=== PATIENT | male | born 1940 | race Caucasian/White ===

== ENCOUNTER → 2017-09-23 | Outpatient (CLI) | payer OTHER ==
[~2017-09-23] MED LIST: ADVAIR DISKUS 21 DSK INH; AUGMENTIN 875 M1 TAB PO; CLARITIN10 MG PO; CORDROL20 MG PO; GLIPIZIDE10 MG PO; GLIPIZIDE5 MG PO; JANUVIA25 MG PO; KEFLEX500 MG PO; LASIX20 MG; LASIX20 MG PO; LISINOPRIL5 MG; LOVASTATIN20 MG PO; LOVASTATIN40 MG; MEDROL DOSEPAK4 MG PO; METFORMIN1000 MG; PERCOCET 325 MG1 TA2 PO; PREDNISONE20 MG PO; PROVENTIL0.09 MG/AC IH; SPIRIVA -- 3018 MCG PO; VICODIN 5/500 505 M1 PO; VITAMIN D1000 IU PO; VITAMIN D2000 IU PO; WARFARIN4 MG; XARE15TA PO
[2017-09-23 11:41] LABS: BASO % 0.4 % (0.0-1.0); EOS # 0.1 10*3/uL (0.0-0.4); EOS % 2.2 % (1.0-4.0); HEMATOCRIT 37.1 % (42.0-52.0); HEMOGLOBIN 11.7 g/dl (14.0-18.0); LYMPH # 1.5 10*3/uL (1.3-4.4); LYMPH % 26.2 % (27.0-41.0); MEAN CELL VOLUME 95.9 fl (80.0-94.0); MEAN CORPUSCULAR HGB 30.2 pg (27.0-31.0); MEAN CORPUSCULAR HGB CONC 31.5 g/dl (33.0-37.0); MEAN PLATELET VOLUME 11.9 fl (9.6-12.3); MONO # 0.5 10*3/uL (0.1-1.0); MONO % 8.4 % (3.0-9.0); NEUT # 3.4 10*3/uL (2.3-7.9); NEUT % 61.5 % (47.0-73.0); PLATELET COUNT AUTOMATED 91 10*3/uL (130-400); RED BLOOD COUNT 3.87 10*6/uL (4.50-5.90); WHITE BLOOD COUNT 5.6 10*3/uL (4.8-10.8)
[2017-09-23 11:48] LABS: BILIRUBIN NEGATIVE (NEGATIVE); BLOOD NEGATIVE (NEGATIVE); CLARITY CLEAR (CLEAR); COLOR YELLOW (YELLOW); GLUCOSE NEGATIVE (NEGATIVE); KETONE NEGATIVE (NEGATIVE); LEUKO ESTERASE NEGATIVE (NEGATIVE); NITRITE NEGATIVE (NEGATIVE); PH 5.5 (5.0-9.0); UROBILINOGEN 0.2 E.U./dl (0.2-1.0)
[2017-09-23 12:11] LABS: ALBUMIN 3.7 gm/dl (3.1-4.5); CREATININE 2.2 mg/dL (0.70-1.30); PHOSPHOROUS 3.7 mg/dL (2.5-4.9)
[2017-09-23 12:52] LABS: MUCOUS 1+; WBC 0-2 wbc/hpf (0-5)
[2017-09-23 13:45] LABS: FERRITIN 87.9 ng/mL (22.0-322.0); PTH INTACT 44.2 pg/mL (14.0-72.0); VITAMIN D, 25-HYDROXY 22.3 ng/mL (30-100)
== END | disposition home or self-care (01) ==
LOC: LAB 11:18
PROVIDERS: Internal Medicine Nephrology
DX: N18.3 Chronic kidney disease, stage 3 (moderate) (principal); N25.81 Secondary hyperparathyroidism of renal origin; D64.9 Anemia, unspecified; E64.9 Sequelae of unspecified nutritional deficiency

== ENCOUNTER 2017-10-28 17:40 | Inpatient (IN) | payer OTHER ==
[~2017-10-28] VITALS: Ht 182.8 cm; Wt 86.6 kg
--- NOTE | ~2017-10-28 | PR ---
[place], [place] PROGRESS NOTE NAME: HARSH JOHNS SR UNIT #: [id number] ROOM: 401 DOCTOR: OMAR ROBLES DO BIRTHDATE: [birth year] DOS: 11/06/2017 ATTENDING PHYSICIAN: Dr. Lofton. SUBJECTIVE: The patient was seen and examined this morning. The patient continues to improve, notes that his respiratory symptoms are all getting better. The patient continues to deny any chest pain. His shortness of breath and coughing have improved. The patient agrees to be assessed for home oxygen and patient felt like he was ready to go home and continue his treatment as outpatient. OBJECTIVE: VITAL SIGNS: Temperature 97.8, pulse 83, respirations 18, blood pressure 134/56, pulse ox 98% on room air. HEENT: Eyes are clear. No injection. No drainage. Nares are patent. Mucous membranes are moist. CARDIOVASCULAR: Regular rate and rhythm. No murmurs, gallops or rubs. LUNGS: No wheezing or crackles were appreciated; however, diminished breath sounds were heard throughout. ABDOMEN: Soft and nontender. Bowel sounds were present. EXTREMITIES: No cyanosis, clubbing, erythema or edema. LABORATORY DATA: Sodium 141, potassium 4, chloride 104, carbon dioxide 28, creatinine 1.4, glucose is 236. Bronch cultures show light yeast. Blood cultures continue to remains negative. Sputum cultures show normal marshall. IMPRESSION: 1. Bilateral pneumonia. 2. Chronic obstructive pulmonary disease with acute exacerbation. 3. Acute hypoxic respiratory failure. 4. Hypercapnia. PLAN OF TREATMENT: The patient at this time was assessed for home O2. The patient was able to walk without hypoxia. The patient does not qualify for home oxygen. The patient is cleared for discharge from a respiratory standpoint, recommend steroids and antibiotics as directed by the primary team and follow up with Dr. Lofton as outpatient in 1-2 weeks. OMAR ROBLES DO [place], [place] PROGRESS NOTE NAME: HARSH JOHNS SR UNIT #: [id number] ROOM: 401 DOCTOR: OMAR ROBLES DO BIRTHDATE: [birth year] JH LOFTON MD CM:PNCARMINE [id number] OMAR ROBLES DO 11/06/17 1508 interface
--- NOTE | ~2017-10-28 | PR ---
[place], [place] PROGRESS NOTE NAME: HARSH JOHNS SR UNIT #: [id number] [place]OM: [facility] [place] [facility] DOCTOR: SHANNAN MEDELLIN,JANUARY BIRTHDATE: [birth year] DOS: 11/03/2017 SUBJECTIVE: The patient is being followed for post-viral pneumonia. He was positive for RSV. He was diagnosed with pneumonia. He is going to be bronch tomorrow. He is currently on Levaquin. His MRSA screen was negative. Sputum culture only grew oral marshall. Blood cultures were negative. He is alert and oriented, feeling better, states his breathing is much better. Little cough with a little yellow white sputum. No nausea, vomiting or diarrhea. No pain, no fevers or shaking chills. Further review of systems is unremarkable other than he does have lower extremity edema. LABORATORY DATA: Show WBC is 10.4, platelets 78. BUN 27, creatinine 1.34. LFTs within normal limits. ProBNP 3971. CURRENT MEDICATIONS: Include Robitussin, Zocor, Solu-Medrol, Lovenox, Levaquin, vitamin D, Protonix, DuoNebs, insulin, Mucinex, Restoril, Zofran, milk of mag, [place]. PHYSICAL EXAMINATION: VITAL SIGNS: Show temperature 97.4, pulse 67, respirations 18, BP 137/54. GENERAL: A 77-year-old male in no acute distress. HEAD, EYES, EARS, NOSE AND THROAT: Normocephalic, no thrush. LUNGS: Diminished bilaterally with rhonchi. Respirations even and unlabored. HEART: Regular rhythm. No murmur appreciated. ABDOMEN: Soft, nondistended, nontender. EXTREMITIES: +2 to 3 edema bilateral lower extremities, left greater than right. SKIN: Warm, dry, free of rashes. ASSESSMENT: Post-viral pneumonia as well as some degree of volume overload. PLAN: Continue the Levaquin. Follow up on the bronchoscopy in the morning. Case discussed with Dr. Rustam Salgado. JANUARY VIGNESH CAMPBELL [place], [place] PROGRESS NOTE NAME: HARSH JOHNS SR UNIT #: [id number] ROOM: 401 DOCTOR: SHANNAN MEDELLIN,JANUARY BIRTHDATE: [birth year] RUSTAM SALGADO MD CM:PNTRANS [phone] SHANNAN MEDELLIN 11/03/17 175 interface
--- NOTE | ~2017-10-28 | PR ---
[place], [place] PROGRESS NOTE NAME: HARSH JOHNS SR [facility] #: [id number] UNIT #: [id number] ROOM: 401 DOCTOR: RUSS CLARK MDJH BIRTHDATE: [birth year] DOS: 11/01/2017 SUBJECTIVE: The patient seen and examined. He has been noted with slow improvement in the respiratory symptoms, still noted with coughing that has occurred at night with the use of the BiPAP. Shortness of breath and wheezing have been resolving. There were no symptoms of chest pain or any abdominal pain. OBJECTIVE: VITAL SIGNS: Recorded and showed temperature noted as normal, respiratory rate 20, heart rate 71, and blood pressure 150/65. This morning, pulse oxygen saturation on 3 liters nasal cannula, 93%-96% saturation recorded. HEENT: No acute change. NECK: Supple. CARDIOVASCULAR: S1, S2 audible. LUNGS: Noted with scattered crackles in the lungs bilaterally. ABDOMEN: Soft, nontender. EXTREMITIES: Without any acute edema. SKIN: No visible lesions or rashes. MUSCULOSKELETAL: No deformities. CENTRAL NERVOUS SYSTEM: Cranial nerves 2-12 intact. LABORATORY DATA: The patient's CBC today, WBC count normal, hemoglobin 11.5, hematocrit 35.5, and platelet count 92,000. CMP this morning, BUN 36, creatinine 1.73, glucose 316, and chloride 108. Yesterday, BUN noted at 40 and creatinine 1.71. Chest x-ray, 2-views, which was done for this patient was personally reviewed, shows evidence of bilateral pulmonary infiltration noted with worsening as compared to the previous chest x-ray. RSVB virus was noted as well. IMPRESSION: 1. The patient who has been noted with persistent acute kidney injury with persistent acute respiratory failure, partial improvement, the chest x-ray noted quite worse and isolative respiratory syncytial B virus as well from the respiratory secretions. 2. The patient with acute exacerbation of chronic obstructive pulmonary disease as well. 3. Past history of pulmonary embolism. 4. Stable mild thrombocytopenia as well. PLAN OF MANAGEMENT: Zosyn will be discontinued. The patient will be started on IV doxycycline and continued. Levaquin added to antibiotics. Monitor respiratory status closely. Discontinue BiPAP because of severe cough symptoms ____ started. Consider doing bronchoscopy on Saturday, reassessment of current pulmonary infiltration. The patient was receiving vancomycin that had been discontinued yesterday. ____ vancomycin could be started if the respiratory symptoms further deteriorate. Supportive care, plan of management and care. [place], [place] PROGRESS NOTE NAME: HARSH JOHNS SR UNIT #: [id number] ROOM: [facility] DOCTOR: JH STOUT MD BIRTHDATE: [birth year] JH SOLANO MD CM:PNTRANS [phone] JH CLARK MD 11/01/171751 interface
--- NOTE | ~2017-10-28 | EKG ---
[place], [place] ELECTROCARDIOGRAM REPORT NAME: HARSH JOHNS SR UNIT #: [id number] ROOM: 401 DOCTOR: RUSS CLARK MD,JH BIRTHDATE: [birth year] DOS: 10/28/2017 TIME: 5:45 p.m. Sinus tachycardia noted. Heart rate 121 beats per minute. EKG for this patient was noted with possible consideration of right ventricular hypertrophy. JH SOLANO MD CM:EKGRPT:ELECTROCARDIOGRAM REPORT 1825 1917 JH CLARK MD
--- NOTE | ~2017-10-28 | CON ---
[place], [place] REPORT OF CONSULTATION NAME: HARSH JOHNS SR UNIT #: [id number] ROOM: 401 DOCTOR: DAMIAN ALMANZA,RUSTAM Gutierrez BIRTHDATE: [birth year] DOS: 11/02/2017 ADDENDUM After reviewing the chart, labs and radiographs, I agree with the above plans as described. We will follow the patient up clinically and adjust accordingly. Thank you for allowing me to see the patient. RUSTAM SALGADO MD CM:CONSTR:REPORT OF CONSULTATION 0742 11/04/17 1422 interface
--- NOTE | ~2017-10-28 | PR ---
[place], [place] PROGRESS NOTE NAME: HARSH JOHNS SR [facility] #: [id number] UNIT #: [id number] ROOM: 405 DOCTOR: RUSS CLARK MD,JH BIRTHDATE: [birth year] DOS: 10/31/2017 PULMONARY PROGRESS NOTE SUBJECTIVE: The patient has been showing continued gradual reduction and improvement of his respiratory symptoms with reduction of cough, wheezing and shortness of breath. Denies symptoms of chest pain or any acute hemoptysis. The patient has not been noted any symptoms of fever or chills. He has been using the BiPAP at times. OBJECTIVE: VITAL SIGNS: For the patient which were recorded. The patient showed the temperature noted as normal, respiratory rate of 20-24, heart rate of 90-75, blood pressure 136/78-142/58. Pulse oxygen saturation 3 liters nasal cannula 95% saturation recorded. HEENT: Showed no acute change. NECK: Supple. CARDIOVASCULAR: S1, S2 is audible. LUNGS: The patient was noted with moderate decreased breath sounds with expiratory wheezing without any crackles. ABDOMEN: Soft, nontender. EXTREMITIES: Shows no edema, clubbing, cyanosis, or other. Visible skin, no lesions or rashes. MUSCULOSKELETAL: No deformities. SKIN: No abnormal lesions or rashes. CENTRAL NERVOUS SYSTEM: Cranial nerves 2-12 intact. LABORATORY DATA: Culture of the sputum. The patient for the first of this month was noted as normal marshall. CBC: Normal WBC count, hemoglobin 11.2, hematocrit 34.9, platelet count 91,000. The BMP of patient, BUN 40, creatinine 1.71, glucose 330. Blood culture, no bacterial growth was noted from 10/28/2017. IMPRESSION: 1. The patient was being currently noted with severe acute hypoxic respiratory failure with hypercapnia with acute bilateral pneumonia for Gram stain rather culture. Culture of the sputum noted as normal marshall. 2. Worsening with acute kidney function, most likely secondary to intravascular volume depletion for this patient as well. 3. Hyperglycemia related to the use of the corticosteroids as well. PLAN OF TREATMENT: Obtain a chest x-ray in the morning. The patient to reassess the progression of the pneumonia. Discontinue vancomycin based on culture results. Continuation of the Lovenox. The patient adjusted to the abnormal kidney functions as well as the antibiotic. The patient has Levaquin, the primary antibiotic. Decrease the Solu-Medrol to 40 mg b.i.d. as well as reduction in the wheezing was noted. Start the patient intravenous fluids half normal saline 80 mL an hour for the next 48 hours with close monitor labs to be continued for thrombocytopenia, BUN and creatinine and others. Continue use of BiPAP as tolerated. Supportive care, plan of management therapy and care. [place], [place] PROGRESS NOTE NAME: HARSH JOHNS SR UNIT #: [id number] ROOM: 405 DOCTOR: JH STOUT MD BIRTHDATE: [birth year] JH SOLANO MD CM:BRITTANI [phone] JH CLARK MD 10/31/17 1825 interface
--- NOTE | ~2017-10-28 | PR ---
[place], [place] PROGRESS NOTE NAME: HARSH JOHNS SR [facility] #: [id number] UNIT #: [id number] ROOM: 401 DOCTOR: RUSS CLARK MDJH BIRTHDATE: [birth year] DOS: 11/04/2017 SUBJECTIVE: He has been noted comfortable at this time without any acute distress. The patient has not been noted with any symptoms of chest pain. Currently, n.p.o. past midnight for bronchoscopy. The Lovenox has been noted on hold in the last 24 hours. The patient denies any symptoms of chest pain. The cough remains nonproductive, unchanged. Denies symptoms of dizziness or headache. Denies sore throat or hoarseness. Denies symptoms of gastroesophageal reflux, nausea, or vomiting. Denies dysuria or hematuria. Denies any musculoskeletal pain. Generalized weakness was reported. Remaining systems were reviewed and they were noted normal. OBJECTIVE: VITAL SIGNS: Normal temperature, respiratory rate 18-21, heart rate 92, blood pressure 141/50. The pulse oxygen saturation on 2 L nasal cannula 94% saturation recorded. HEENT: Head was atraumatic. Eyes nonicterus. NECK: Supple. CARDIOVASCULAR: S1, S2 audible. LUNGS: The patient was noted without any wheezing or crackles at the present time. ABDOMEN: Noted soft, nontender. Bowel sounds present. EXTREMITIES: Noted without edema. VISIBLE SKIN: No rashes, lesions, or bruising. MUSCULOSKELETAL: No deformities. GENITOURINARY: Intact. LABORATORY DATA: The CMP this morning - glucose 283, BUN 32, creatinine 1.39. Remaining electrolytes were normal. CBC this morning - WBC count were normal, hemoglobin 12.7, hematocrit 38.6, platelet count of 81,000. The chest x-ray that was done for this patient yesterday was reviewed, showed improvement in the infiltration. IMPRESSION: 1. The patient has persistent cough with bilateral pulmonary infiltration. Currently treated for the acute pneumonia. 2. Anticoagulation, which has been known chronic. The patient with history of hypercoagulability and massive pulmonary embolism. 3. History of colon cancer, previously as well. 4. Severe acute hypercapnic and hypoxic respiratory failure as well. 5. Thrombocytopenia, which has been noted variably decreased. PLAN OF MANAGEMENT: Proceed with bronchoscopy as planned for this patient this morning. Further modification of treatment to be done based on progression of the illness. The acute kidney injury continued to resolve progressively. Titrate oxygen supplementation to maintain a saturation of 92% or greater. Continue the current nutrition support for the patient as well. The Solu-Medrol dose was noted 40 mg b.i.d. Changes will be made if necessary after bronchoscopy. [place], [place] PROGRESS NOTE NAME: NAT BOWERSHARSH Raffi UNIT #: [id number] ROOM: [facility] DOCTOR: JH STOUT MD BIRTHDATE: [birth year] JH SOLANO MD CM:PNTRANS [phone] JH CLARK MD 11/04/174 interface
--- NOTE | ~2017-10-28 | PR ---
[place], [place] PROGRESS NOTE NAME: HARSH JOHNS SR [facility] #: [id number] UNIT #: [id number] ROOM: 405 DOCTOR: RUSS CLARK MD,JH BIRTHDATE: [birth year] DOS: 10/30/2017 SUBJECTIVE: He has been noted with reduction in symptoms of respiratory distress and coughing and wheezing in the last 24 hours. The patient has been ordered the BiPAP with adjusted setting after obtaining arterial blood gases. He remains in Intensive Care Unit. Denies symptoms of acute chest pain. The patient has been noted generally weak and fatigued ____ decreased. There were no symptoms of fever or chills. PHYSICAL EXAMINATION: VITAL SIGNS: Show normal temperature, respirations 16, heart rate of 85, blood pressure 118/60. The pulse oxygen saturation for the patient on 30% with BiPAP is 96% on 3 liters nasal cannula, 99% saturation. HEENT: Examination shows head was atraumatic. Eyes nonicterus. NECK: Supple. CARDIOVASCULAR: S1, S2 audible. LUNGS: The patient was noted with moderate decreased breath sounds with expiratory wheezing, decreased from previous examination. There were no crackles heard. ABDOMEN: Soft, nontender. Bowel sounds present. EXTREMITIES: Without any edema. LABORATORY DATA: The patient's CBC today, platelet count noted 91,000, hemoglobin 10.6, hematocrit 33.6, platelet count was normal. Influenza A and B, nasal washing antigen for the patient that were ordered yesterday were noted as negative. Respiratory viral panel is pending. Arterial blood gas related that was done yesterday, pH of 7.38, pCO2 of 30.3, pO2 of 69.8. CMP this morning, BUN 44, creatinine 1.63, glucose 336. Chloride 110 and magnesium is normal. The culture of the sputum for this patient from the 10/28/2017 was noted with normal marshall preliminary. Final culture results remains pending. IMPRESSION: 1. The patient who has been currently noted with acute severe hypoxic respiratory failure with multilobar pneumonia for this patient. 2. Acute exacerbation of chronic obstructive pulmonary disease. 3. Hyperglycemia secondary to use of the corticosteroids as well. Blood glucose noted at the bedside more than 400 previously, currently noted as more than 300. 4. Severe debility remains persistent. 5. Thrombocytopenia as well. 6. Past history of ____ 7. Acute kidney injury, which was resolving. PLAN OF MANAGEMENT: Reduce the Solu-Medrol dose to 40 mg q.8h. Discontinue the Lovenox 30 mg subcu daily on the therapeutic dose and start adjusted with the kidney functions. Other supportive therapy, plan of management and care. Supportive care, other plan of management to be continued for the patient as well. Adjust the antibiotics based on culture results and improvement in the respiratory symptoms. [place], [place] PROGRESS NOTE NAME: HARSH JOHNS SR UNIT #: [id number] ROOM: 405 DOCTOR: JH STOUT MD BIRTHDATE: [birth year] JH SOLANO MD CM:PNTRANS [phone] JH CLARK MD 10/30/171945 interface
--- NOTE | ~2017-10-28 | PR ---
[place], [place] PROGRESS NOTE NAME: HARSH JOHNS SR UNIT #: [id number] ROOM: 401 DOCTOR: JH STOUT MD BIRTHDATE: [birth year] DOS: 11/05/2017 SUBJECTIVE: The patient has been noted comfortable at this time. Bronchoscopy done yesterday for the patient successfully, which has resulted in reduction of symptoms of coughing and shortness of breath. Denies symptoms of chest pain. The patient has been assessed for home oxygen and noted with hypoxia the patient will be requiring oxygen supplementation as a portable oxygen at home. The patient has not been noted with any ongoing acute new respiratory complaints at the present time. OBJECTIVE: VITAL SIGNS: For the patient which were recorded, the patient showed the temperature noted normal, respiratory rate 18, heart rate 70, and blood pressure 136/59. Pulse oxygen saturation of the patient on 2 liters is 97% saturation. HEENT: Examination shows no acute change. NECK: Supple. CARDIOVASCULAR: S1, S2 audible. LUNGS: Examination of the lung, the patient was noted without any wheezing or crackles at the present time. Breaths are noted mildly decreased bilaterally. ABDOMEN: Soft, nontender. Bowel sounds present. EXTREMITIES: Without any acute edema. LABORATORY DATA: Culture of the sputum ____ bronchial washing noted, normal marshall. The Gram stain shows few epithelial cells, moderate white blood cells, and a few gram-positive cocci in pairs and clusters. IMPRESSION: The patient with acute bilateral pneumonia superimposed area of atelectasis with acute hypoxic respiratory failure, hypercapnia, and exacerbation of chronic obstructive pulmonary disease all gradually resolving with significant further improvement noted after therapeutic bronchoscopy. PLAN OF TREATMENT: Await until tomorrow for the patient for the final culture results because of excessive pneumonia. Continue bronchodilators and oxygen supplementation. The corticosteroid will remain at the same dose. Other supportive therapy and plan of management for the patient to be done based on progression of the illness. Repeat another chest x-ray in the morning for reassessment of the current pulmonary infiltration. [place], [place] PROGRESS NOTE NAME: HARSH JOHNS SR UNIT #: [id number] ROOM: 401 DOCTOR: JH STOUT MD BIRTHDATE: [birth year] JH SOLANO MD CM:PNTRANS [phone] JH CLARK MD 11/05/17 2257 interface
--- NOTE | ~2017-10-28 | PR ---
[place], [place] PROGRESS NOTE NAME: HARSH JOHNS SR UNIT #: [id number] ROOM: 401 DOCTOR: JH STOUT MD BIRTHDATE: [birth year] DOS: 11/03/2017 SUBJECTIVE: She has been noted comfortable time sitting in a chair. Cough has been noted intermittently without any sputum expectoration. Shortness of breath has been noted with gradual reduction. There were no symptoms of chest pain or hemoptysis. The patient denies any symptoms of edema or pain of the lower extremities. Denies any dizziness or headache. OBJECTIVE: VITAL SIGNS: Normal temperature, respiratory rate 18, heart rate 67, blood pressure 137/54-146/56. Pulse oxygen saturation on 3 liters cannula 93% to 96% saturation. HEENT: No acute change. NECK: Supple. CARDIOVASCULAR: S1, S2 is audible. LUNGS: The patient noted with crackles in the lung noted bilaterally with expiratory wheezing. ABDOMEN: Soft, nontender. EXTREMITIES: Without any edema. SKIN: No lesions or rashes. MUSCULOSKELETAL: No deformities. CENTRAL NERVOUS SYSTEM: Intact. LABORATORY DATA: CBC today was reviewed. WBC count normal, hemoglobin 11.8, hematocrit 36.7, platelet count 78,000. CMP: The patient this morning BUN 27, creatinine 1.34, glucose 198. Albumin of 2.8, total protein of 6.0. IMPRESSION: 1. The patient who had been currently treated with bilateral acute pneumonia for this patient responding to the treatment slowly with a nonproductive cough. 2. The patient with RSV infection also noted and acute bronchitis. 3. Acute exacerbation of chronic obstructive pulmonary disease. 4. Thrombocytopenia for this patient noted variable. 5. Steroid-induced hyperglycemia. 6. Resolving acute kidney injury progressively. PLAN OF MANAGEMENT: Continuation of the current plan of management at this time. Bronchoscopy planned to be done in the morning. Continue use of bronchodilators, oxygen supplementation, avoid the diuretic therapy. Supportive care, plan of management with the treatment plan of care. Usual treatment, other therapies. [place], [place] PROGRESS NOTE NAME: HARSH JOHNS SR UNIT #: [id number] ROOM: 401 DOCTOR: JH STOUT MD BIRTHDATE: [birth year] JH SOLANO MD CM:PNTRANS [phone] JH CLARK MD 11/04/17 0154 interface
--- NOTE | ~2017-10-28 | CON ---
[place], [place] REPORT OF CONSULTATION [id number] UN[facility] #: [id number] ROOM: 401 DOCTOR: SHANNAN MEDELLIN,JANUARY BIRTHDATE: [birth year] DOS: 11/02/2017 HISTORY OF PRESENT ILLNESS: The patient is a pleasant 77-year-old male who was admitted from home on October 28. He had been ill for a week or so with cough, shortness breath and congestion. He states he is feeling much better than he had. When he was admitted, he was on Levaquin and doxycycline. His respiratory viral panel has come back positive for RSV. He has been receiving antibiotics for community-acquired pneumonia. Chest x-ray demonstrated infiltrates on admission on October 28. Chest x-ray yesterday showed some bilateral worsening. He is going to be bronched by Dr. Lofton on Saturday. The doxycycline was added earlier today. It appears he did have a MRSA screen done, which was negative. His sputum culture only had oral marshall. The Gram stain had many wbc's and gram-positive cocci in pairs and chains. His influenza was negative. Urinary antigens were not done, wbc's are normal. He has been afebrile. He states sputum is white to pale yellow. Cough is improved and again he feels much better since admission. He has significant bilateral lower extremity edema. No nausea, vomiting or diarrhea. No rashes. Further review of systems is unremarkable. PAST MEDICAL HISTORY: Includes DVT, PE, acute renal failure, diabetes, hyperlipidemia, hypertension, COPD, GERD, chronic thrombocytopenia with questionable factor V Leiden. SOCIAL HISTORY: He is a reformed smoker. No alcohol or illicit drug use. FAMILY MEDICAL HISTORY: Both parents are of unknown causes. ALLERGIES: No known drug allergies. CURRENT MEDICATIONS: Include doxycycline, Robitussin, Zocor, Solu-Medrol, Lovenox, Levaquin, vitamin D, Protonix, DuoNeb, insulin, Mucinex, Restoril, Zofran, milk of magnesia, [place] and Tylenol. LABORATORY DATA: Cultures as reviewed above. Admitting blood cultures were negative. WBCs 9.3, platelets 98. BUN 30, creatinine 1.62. LFTs within normal limits. PHYSICAL EXAMINATION: VITAL SIGNS: Temperature 97.3, pulse 68, respirations 20 and BP 154/60. GENERAL: Alert and oriented, pleasant 77-year-old male in no acute distress. HEENT: Normocephalic. NECK: Supple. No thrush. LUNGS: Diminished bilaterally with few crackles. Respirations even and unlabored on O2 via nasal cannula. HEART: Regular rhythm. No murmur appreciated. ABDOMEN: Soft, nondistended and nontender. EXTREMITIES: Left lower extremity +3 edema. Right lower extremity +2 to 3 edema. SKIN: Warm, dry and free of rashes. [place], [place] REPORT OF CONSULTATION NAME: HARSH JOHNS SR UNIT #: [id number] ROOM: 401 DOCTOR: SHANNAN MEDELLIN,JANUARY BIRTHDATE: [birth year] ASSESSMENT: Respiratory syncytial virus respiratory infection with post-viral pneumonia. He is improving clinically. Despite the somewhat worsened chest x-ray yesterday given his peripheral edema, I have concern that this is more volume overload than pneumonia. At this point, I think it is safe to stop the doxycycline. Continue the Levaquin. He has been improving with it. His MRSA screen was negative. We will check a proBNP. Again, continue the Levaquin, stop the doxycycline. Followup on the bronch. REBA CAMPBELL CNP RUSTAM SALGADO MD CM:CONSTR:REPORT OF CONSULTATION 1634 11/02/17 2146 interface
--- NOTE | ~2017-10-28 | PR ---
[place], [place] PROGRESS NOTE NAME: HARSH JOHNS SR [facility] #: [id number] UNIT #: [id number] ROOM: 401 DOCTOR: RUSS CLARK MD,JH BIRTHDATE: [birth year] DOS: 11/06/2017 PULMONARY ADDENDUM NOTE SUBJECTIVE: The patient was independently seen and examined today with [id number] encounter and history was confirmed. The physical examination performed. The labs available reviewed with the patient personally as well. Assessment and discharge planning for the patient and now the recommendation personally made. Note done by the medical editor was approved. The patient has been noted comfortable without any symptoms of acute shortness of breath at this time, coughing, chest pain, sputum expectoration, and other problems. PHYSICAL EXAMINATION: VITAL SIGNS: For the patient was noted to be normal. The pulse oxygen saturation of the patient recorded as 98% on 2 liters nasal cannula. LUNGS: Noted clear of any wheezing or crackles. ABDOMEN: Soft, nontender. EXTREMITIES: Without any edema. LABORATORY DATA: BMP: BUN 36 and creatinine 1.42. The culture of the bronchial washing light growth of yeast. Chest x-ray, PA and lateral view done this morning was reviewed shows continued resolution of the acute infiltration of the lungs bilaterally with minimal infiltration noted at the present time in the right lower lobe. Left-sided pulmonary infiltration completely resolved. There were no pleural effusions. PLAN OF TREATMENT: The patient has been reassessed. The patient has oxygen supplementation, would not need any oxygen supplementation. The oxygen saturation maintained 92% or greater. He would be considered and recommended for home discharge for the patient without any oxygen. Use of tapering dose of prednisone. No further antibiotic use will be necessary. Outpatient followup is suggested in my office in the next 3-4 weeks. JH SOLANO MD CM:BRITTANI [id number] JH CLARK MD 11/06/17 2347 interface
--- NOTE | ~2017-10-28 | CON ---
[place], [place] REPORT OF CONSULTATION NAME: HARSH JOHNS SR [facility] #: [id number] UNIT #: [id number] ROOM: [facility] DOCTOR: JH STOUT MD BIRTHDATE: [birth year] DOS: 10/29/2017 REASON FOR CONSULTATION: The patient with exacerbation of chronic obstructive pulmonary disease. HISTORY OF PRESENT ILLNESS: A 77-year-old white male who has been known to me from the past. He has been noted with past history of massive pulmonary embolism. The patient with history of COPD, essential hypertension and others. The patient presented to the hospital, he has been reported getting sick for the past one week in 09/2017. The symptoms have been noted with gradual worsening. The patient stated he did not want to come to the hospital because of the holidays. He has been brought to the hospital, the patient's symptoms noted to progressively worsen. He had recently used Zithromax as well resulting in no improvement of respiratory symptom. He has been noted with severe excessive chest congestion, inability to expectorate any sputum with severe dyspnea noted at rest. He was also noted with symptoms of wheezing as well with the tightness in the chest. He has been brought to the hospital by the EMS. The patient was given albuterol nebulizer treatment. During transportation to the Emergency Room, the BiPAP was also used to manage the respiratory distress. The patient has been currently admitted to the Intensive Care Unit where he has been assessed. He was noted with audible coughing and wheezing and still appears to have symptoms of shortness of breath. He denies any symptoms of chest pain. Denies any hemoptysis. REVIEW OF SYSTEMS: CONSTITUTIONAL: Fatigue and tiredness noted without symptoms of fever or chills. EYES: Denies any burning, redness, or tenderness. EARS, NOSE, AND THROAT SYMPTOMS: Denies sore throat, hoarseness, otalgia, postnasal drainage or epistaxis. CARDIOVASCULAR: Denied anginal pain, edema or pain in lower extremities or pain upon walking. GASTROINTESTINAL: Denied dysphagia, nausea, vomiting, diarrhea, abdominal pain, hematemesis, melena, or abnormal weight loss. Denies symptoms of hematochezia. GENITOURINARY SYMPTOMS: Denies dysuria, suprapubic pain, or hematuria. MUSCULOSKELETAL: No acute joint pain, redness, or tenderness. CENTRAL NERVOUS SYSTEM: No dizziness, headache, diplopia, or syncopal episodes. Remaining systems were reviewed with the patient, they were noted all negative. PAST MEDICAL HISTORY: 1. The patient known with history of COPD. 2. Type 2 diabetes mellitus. 3. Hypercholesterolemia. 4. Essential hypertension. 5. Cancer of the colon in 2013, treated with partial colectomy, chemotherapy and radiation therapy. PAST SURGICAL HISTORY: 1. Appendectomy. [place], [place] REPORT OF CONSULTATION NAME: HARSH JOHNS SR UNIT #: [id number] ROOM: [facility] DOCTOR: RUSS CLARK MD,[facility] BIRTHDATE: [birth year] 2. Bilateral inguinal hernia repair. 3. Embolectomy in 2001. 4. Partial colectomy in October of 2014. 5. MediPort insertion for chemotherapy. SOCIAL HISTORY: The patient is , has 5 children. Denies history of alcohol use or illicit drug use. He has worked for 35 years in the [employer]. Smoking was noted from the age of [age] years old, 1.5 pack of cigarettes per day, discontinued in 2001. FAMILY HISTORY: Father at the age of 6464 years old from an accident. The mother at the age of 7272 years old from acute myocardial infarction. HOME MEDICATIONS: Used by the patient were noted as use of: 1. Advair 250/50 one inhalation b.i.d. 2. Vitamin D 1000 international units daily. 3. ____ subq daily. 4. Glipizide 10 mg daily. 5. Lisinopril 5 mg daily. 6. Benazepril 10 mg daily. 7. Lasix 20 mg p.o. daily. 8. ProAir HFA inhaler use. DRUG ALLERGY HISTORY: No known drug allergies. PHYSICAL EXAMINATION: GENERAL: A 77-year-old white male who has been currently noted to be awake and alert with mild tachypnea at rest upon assessment. He has been noted with audible cough and wheezing. Height of 5 feet 8 inches, weight of 202 pounds, BMI 30.7. VITAL SIGNS: The temperature noted 99.9 degrees Fahrenheit to normal temperature, respiratory rate 24-26 and noted 32 on admission, heart rate ranged between 126 sinus tachycardia to 92, blood pressure 98/51-115/56. Pulse oxygen saturation for the patient on the BiPAP was 94% saturation with 30% oxygen, setting of 12/6 and with the nasal cannula supplementation oxygen saturation noted 95%. HEENT: Examination shows head was atraumatic. Eyes nonicterus. NECK: Supple. CARDIOVASCULAR: S1, S2 audible. No added sounds. LUNGS: Decreased breath sounds in the lungs were noted diffusely with expiratory wheezing. Basilar crackles were present. ABDOMEN: Soft, flat, nontender, bowel sounds present. MUSCULOSKELETAL: No obvious deformities. LABORATORY DATA: The patient's CBC from 10/28/2017, WBC count 7.9, hemoglobin 11.8, hematocrit 37.1, and platelet count of 102,000. PT/INR were noted normal. PTT was normal. CMP on 10/28/2017, BUN 50, creatinine 2.09, glucose 122. Remaining CMP was normal. Troponin first set was normal; the second and third set yesterday and this morning all noted normal. CBC this morning: WBC count normal, hemoglobin 10.4, hematocrit 32.____. Calcium was noted uncorrected at [place], [place] REPORT OF CONSULTATION NAME: HARSH JOHNS SR UNIT #: [id number] ROOM: [facility] DOCTOR: JH STOUT MD BIRTHDATE: [birth year] 8.0. Albumin 3.0. The rest of the LFTs were normal. Chest x-ray of the patient that was done, 1 view, was personally reviewed from the PACS image, shows bilateral infiltration was noted in the lungs, in the right middle, right lower and the left lower lobe as well. IMPRESSION: 1. The patient who has been currently admitted to the hospital noted with severe acute hypoxic respiratory failure, bilateral patchy infiltration, viral etiology with superimposed bacterial infection to be considered. However, the viral pneumonia, still remains in consideration. 2. The patient was also noted with acute kidney injury, related to most likely intravascular volume contraction as well. 3. Past history of cancer of the colon. The patient treated in 2014 with surgery, chemotherapy and radiation therapy. 4. Past history of hypercoagulable status. The patient with massive pulmonary embolism was noted, anticoagulation with the use of Lovenox long-term after the malignancy was found. Previously, the patient had been treated with Coumadin. 5. Thrombocytopenia, which has been noted increased from admission, may be related to current acute infectious etiology. 6. Acute exacerbation of chronic obstructive pulmonary disease was also noted and appeared to be severe. PLAN OF TREATMENT: The patient has been started on triple antibiotic therapy because of current severe pneumonia that will be continued until the culture results will be known. He has been getting Solu-Medrol 60 mg q.8 hours. I will order the arterial blood gas of this patient and the patient will be started on the BiPAP afterwards. Collect the sputum for Gram stain and culture. Nasal washing. Additional treatment changes to be made for the patient based on the progression of the illness. Usual care, other supportive therapy, plan of management and care. Additional treatment will be made for this patient later on as well as necessary with progression of the illness. Supportive care. Continue the patient treatment in the Intensive Care Unit. Thank you for allowing me to participate in the care of this patient. JH SOLANO MD CM:CONSTR:REPORT OF CONSULTATION 1428 10/29/17 2212 interface
--- NOTE | ~2017-10-28 | PR ---
[place], [place] PROGRESS NOTE NAME: HARSH JOHNS SR [facility] #: [id number] UNIT #: [id number] ROOM: 401 DOCTOR: RUSS CLARK MD,HJ BIRTHDATE: [birth year] DOS: 11/02/2017 PULMONARY PROGRESS NOTE SUBJECTIVE: The patient was seen and examined on 11/02/2017. He has been noted somewhat comfortable this morning, his antibiotics were changed yesterday. The patient continued to receive the intravenous fluids until this morning as half normal saline. He denies symptoms of chest pain or any abdominal pain. The patient did took a shower yesterday. The telemetry of the patient was continued. Denies any symptoms of edema or pain of the lower extremities. Denies any hemoptysis, cough has been noted nonproductive. OBJECTIVE: VITAL SIGNS: Shows a normal temperature, respiratory rate of 20-18, heart rate 66, blood pressure of 160/66. Pulse oxygen saturation of the patient noted on 3 liters nasal cannula about 97% saturation. HEENT: Showed no acute change. NECK: Supple. CARDIOVASCULAR: S1, S2 is audible. LUNGS: Scattered crackles of the lungs with expiratory wheezing. There were no crackles. There was no rhonchi. ABDOMEN: Flat, soft, nontender. EXTREMITIES: Without any edema. Visible skin, no lesions or rashes. MUSCULOSKELETAL: No deformities. CENTRAL NERVOUS SYSTEM: Cranial nerves 2-12 remained intact. LABORATORY DATA: CMP of the patient that were done today shows glucose 213, BUN 30, creatinine 1.62. Albumin 2.9. Remaining LFTs normal. CBC: Normal WBC count at 9.3, platelet count still noted to 98%, but improved previously and decreased, but still noted less than normal. Hemoglobin of 11.5, hematocrit 36.8, 78% segmented neutrophils noted with ordered differentials. IMPRESSION: 1. Bilateral acute pneumonia. The patient has been noted worsened at this time, with the chest x-ray, we changed antibiotics done yesterday. 2. The patient with RSV infection as well. 3. Overall debility. 4. Acute Change. The patient was noted reduction and improvement in the creatinine in the last 24 hours. 5. Diabetes mellitus with hyperglycemia as well. 6. Acute hypoxic respiratory failure and acute chronic anticoagulation. 7. Pulmonary embolism, hypercoagulability. Currently treated with Lovenox. PLAN OF TREATMENT: No changes in the medical treatment at this time will be necessary. Continue current dose of steroids, antibiotic, which were changed to doxycycline was added with continuation of the Levaquin. Fiberoptic bronchoscopy plan to be done on Saturday morning for further assessment, current persistent abnormality of chest x-ray and current worsening. Risks and benefits of the procedure has been discussed with the patient. The patient was agreeable for the procedure. Additional treatment changes need to be made based on [place], [place] PROGRESS NOTE [id number] UN[facility] #: [id number] ROOM: [facility] DOCTOR: JH STOUT MD BIRTHDATE: [birth year] progression of the illness. JH SOLANO MD CM:PNTRANS [id number] JH CLARK MD 11/03/17 0418 interface
[2017-10-28 17:43] VITALS: BP 136/106
[2017-10-28 18:03] LABS: BASO % 0.1 % (0.0-1.0); EOS % 0.1 % (1.0-4.0); HEMATOCRIT 37.1 % (42.0-52.0); HEMOGLOBIN 11.8 g/dl (14.0-18.0); LYMPH # 0.7 10*3/uL (1.3-4.4); LYMPH % 8.9 % (27.0-41.0); MEAN CELL VOLUME 94.9 fl (80.0-94.0); MEAN CORPUSCULAR HGB 30.2 pg (27.0-31.0); MEAN CORPUSCULAR HGB CONC 31.8 g/dl (33.0-37.0); MEAN PLATELET VOLUME 11.4 fl (9.6-12.3); MONO # 0.5 10*3/uL (0.1-1.0); MONO % 6.8 % (3.0-9.0); NEUT # 6.6 10*3/uL (2.3-7.9); NEUT % 83.3 % (47.0-73.0); PLATELET COUNT AUTOMATED 102 10*3/uL (130-400); RED BLOOD COUNT 3.91 10*6/uL (4.50-5.90); RED CELL DISTRI WIDTH 15.1 % (0-14.5); WHITE BLOOD COUNT 7.9 10*3/uL (4.8-10.8)
[2017-10-28 18:12] LABS: ACT PARTIAL THROMBO TIME 26.3 SECONDS (20.8-31.5); INTERNATIONAL NORM RATIO 1.1 (2.0-3.5)
[2017-10-28 18:15] VITALS: BP 96/68
[2017-10-28 18:20] LABS: ALBUMIN 3.9 gm/dl (3.1-4.5); ALKALINE PHOSPHATASE 49 U/L (45-117); BUN 50 mg/dl (7-24); CHLORIDE 104 mmol/L (98-107); CREATININE 2.09 mg/dL (0.70-1.30); LIPASE 87 U/L (73-393); POTASSIUM 4.2 mmol/L (3.5-5.1); SGOT/AST 10 IU/L (3-35); SGPT/ALT 28 U/L (12-78); SODIUM 138 mmol/L (136-145); TOTAL PROTEIN 7.8 gm/dL (6.4-8.2)
[2017-10-28 18:22] LABS: TROPONIN I < 0.015 ng/ml (<0.045)
[2017-10-28 18:38] VITALS: BP 112/51
[2017-10-28 18:40] VITALS: BP 110/51
[2017-10-28 19:40] VITALS: BP 114/46
[2017-10-28 20:00] VITALS: BP 132/59
[2017-10-28] MEDS ORDERED: PROTONIX40 MG PO (20:46)
[2017-10-29] VITALS: BP 98/51
[2017-10-29 04:00] VITALS: BP 99/45
[2017-10-29 05:28] LABS: BASO % 0.1 % (0.0-1.0); HEMATOCRIT 32.7 % (42.0-52.0); HEMOGLOBIN 10.4 g/dl (14.0-18.0); LYMPH # 0.5 10*3/uL (1.3-4.4); LYMPH % 5.3 % (27.0-41.0); MEAN CELL VOLUME 95.3 fl (80.0-94.0); MEAN CORPUSCULAR HGB 30.3 pg (27.0-31.0); MEAN CORPUSCULAR HGB CONC 31.8 g/dl (33.0-37.0); MEAN PLATELET VOLUME 12.3 fl (9.6-12.3); MONO # 0.5 10*3/uL (0.1-1.0); MONO % 5.9 % (3.0-9.0); NEUT # 7.9 10*3/uL (2.3-7.9); NEUT % 87.9 % (47.0-73.0); RED BLOOD COUNT 3.43 10*6/uL (4.50-5.90); RED CELL DISTRI WIDTH 15.4 % (0-14.5)
[2017-10-29 05:34] LABS: ACT PARTIAL THROMBO TIME 24.4 SECONDS (20.8-31.5); INTERNATIONAL NORM RATIO 1.2 (2.0-3.5)
[2017-10-29 05:51] LABS: CREATININE 1.97 mg/dL (0.70-1.30); POTASSIUM 4.2 mmol/L (3.5-5.1)
[2017-10-29 05:53] LABS: PLATELET COUNT AUTOMATED 68 10*3/uL (130-400)
[2017-10-29 05:53] LABS: PHOSPHOROUS 4.5 mg/dL (2.5-4.9); TOTAL PROTEIN 6.5 gm/dL (6.4-8.2)
[2017-10-29 05:59] LABS: FREE T4 1.02 ng/dl (0.76-1.46); THYROID STIM HORMONE (HS) 0.323 uIU/ml (0.358-4.75)
[2017-10-29 07:17] LABS: VITAMIN D, 25-HYDROXY 18.6 ng/mL (30-100)
[2017-10-29 08:00] VITALS: BP 115/56
[2017-10-29 12:00] VITALS: BP 117/55
[2017-10-29 14:43] LABS: ABG HCO3 17.8 mmol/l (22-26); ABG O2 SATURATION 94.3 % (95-97); ARTERIAL BLOOD GAS PCO2 30.3 mmHg (35-45); ARTERIAL BLOOD GAS PH 7.383 (7.35-7.45); ARTERIAL BLOOD GAS PO2 69.8 mmHg (80-90)
[2017-10-29 16:00] VITALS: BP 107/41
[2017-10-29 20:00] VITALS: BP 110/44
[2017-10-30] VITALS: BP 113/57
[2017-10-30 04:00] VITALS: BP 103/67
[2017-10-30 05:19] LABS: HEMATOCRIT 33.6 % (42.0-52.0); HEMOGLOBIN 10.6 g/dl (14.0-18.0); LYMPH # 0.5 10*3/uL (1.3-4.4); LYMPH % 8.1 % (27.0-41.0); MEAN CELL VOLUME 94.4 fl (80.0-94.0); MEAN CORPUSCULAR HGB 29.8 pg (27.0-31.0); MEAN CORPUSCULAR HGB CONC 31.5 g/dl (33.0-37.0); MEAN PLATELET VOLUME 11.9 fl (9.6-12.3); MONO # 0.3 10*3/uL (0.1-1.0); MONO % 4.4 % (3.0-9.0); NEUT # 5.7 10*3/uL (2.3-7.9); NEUT % 85.8 % (47.0-73.0); RED BLOOD COUNT 3.56 10*6/uL (4.50-5.90); RED CELL DISTRI WIDTH 15.2 % (0-14.5); WHITE BLOOD COUNT 6.6 10*3/uL (4.8-10.8)
[2017-10-30 05:23] LABS: PLATELET COUNT AUTOMATED 91 10*3/uL (130-400)
[2017-10-30 05:39] LABS: ALBUMIN 2.9 gm/dl (3.1-4.5); CREATININE 1.63 mg/dL (0.70-1.30); POTASSIUM 4.4 mmol/L (3.5-5.1)
[2017-10-30 05:41] LABS: TOTAL PROTEIN 6.4 gm/dL (6.4-8.2)
[2017-10-30 08:00] VITALS: BP 118/60
[2017-10-30 12:00] VITALS: BP 109/61
[2017-10-30 16:00] VITALS: BP 128/47
[2017-10-30 20:00] VITALS: BP 127/55
[2017-10-31] VITALS: BP 138/65
[2017-10-31 07:40] LABS: HEMATOCRIT 34.9 % (42.0-52.0); HEMOGLOBIN 11.2 g/dl (14.0-18.0); MEAN CELL VOLUME 94.3 fl (80.0-94.0); MEAN CORPUSCULAR HGB 30.3 pg (27.0-31.0); MEAN CORPUSCULAR HGB CONC 32.1 g/dl (33.0-37.0); MEAN PLATELET VOLUME 11.9 fl (9.6-12.3); PLATELET COUNT AUTOMATED 91 10*3/uL (130-400); RED CELL DISTRI WIDTH 15.2 % (0-14.5); WHITE BLOOD COUNT 8.6 10*3/uL (4.8-10.8)
[2017-10-31 08:00] VITALS: BP 136/78
[2017-10-31 08:12] LABS: CREATININE 1.71 mg/dL (0.70-1.30); POTASSIUM 4.4 mmol/L (3.5-5.1)
[2017-10-31 08:15] LABS: PLATELET SUFFICIENCY LOW (NORMAL); TOTAL CELLS COUNTED 100 #CELLS
[2017-10-31 12:00] VITALS: BP 142/58
[2017-10-31 14:10] VITALS: BP 166/83
[2017-10-31 20:00] VITALS: BP 145/86
[2017-11-01] VITALS: BP 133/81
[2017-11-01 00:04] LABS: ADENOVIRUS Negative (Negative); INFLUENZA A Negative (Negative); INFLUENZA B Negative (Negative); METAPNEUMOVIRUS Negative (Negative); PARAINFLUENZA 1 Negative (Negative); PARAINFLUENZA 2 Negative (Negative); PARAINFLUENZA 3 Negative (Negative); RHINOVIRUS Negative (Negative); RSV A Negative (Negative); RSV B Positive (Negative)
[2017-11-01 07:16] LABS: HEMATOCRIT 35.5 % (42.0-52.0); HEMOGLOBIN 11.5 g/dl (14.0-18.0); MEAN CELL VOLUME 94.2 fl (80.0-94.0); MEAN CORPUSCULAR HGB 30.5 pg (27.0-31.0); MEAN CORPUSCULAR HGB CONC 32.4 g/dl (33.0-37.0); MEAN PLATELET VOLUME 11.7 fl (9.6-12.3); PLATELET COUNT AUTOMATED 92 10*3/uL (130-400); RED BLOOD COUNT 3.77 10*6/uL (4.50-5.90); RED CELL DISTRI WIDTH 15.3 % (0-14.5); WHITE BLOOD COUNT 7.8 10*3/uL (4.8-10.8)
[2017-11-01 07:28] LABS: CREATININE 1.73 mg/dL (0.70-1.30); POTASSIUM 4.4 mmol/L (3.5-5.1); TOTAL PROTEIN 6.6 gm/dL (6.4-8.2)
[2017-11-01 08:00] VITALS: BP 151/65
[2017-11-01 08:07] LABS: PLATELET SUFFICIENCY LOW (NORMAL); TOTAL CELLS COUNTED 100 #CELLS
[2017-11-01 12:00] VITALS: BP 144/65
[2017-11-01 16:00] VITALS: BP 127/68
[2017-11-01 20:00] VITALS: BP 147/63
[2017-11-02] VITALS: BP 141/59; BP 152/91
[2017-11-02 07:44] LABS: HEMATOCRIT 36.8 % (42.0-52.0); HEMOGLOBIN 11.5 g/dl (14.0-18.0); MEAN CELL VOLUME 94.1 fl (80.0-94.0); MEAN CORPUSCULAR HGB 29.4 pg (27.0-31.0); MEAN CORPUSCULAR HGB CONC 31.3 g/dl (33.0-37.0); MEAN PLATELET VOLUME 11.7 fl (9.6-12.3); NUCLEATED RED BLOOD CELL 0.2 % (0.0-0.0); PLATELET COUNT AUTOMATED 98 10*3/uL (130-400); RED BLOOD COUNT 3.91 10*6/uL (4.50-5.90); RED CELL DISTRI WIDTH 15.1 % (0-14.5); WHITE BLOOD COUNT 9.3 10*3/uL (4.8-10.8)
[2017-11-02 07:52] LABS: ALBUMIN 2.9 gm/dl (3.1-4.5); CREATININE 1.62 mg/dL (0.70-1.30); POTASSIUM 4.8 mmol/L (3.5-5.1); TOTAL PROTEIN 6.6 gm/dL (6.4-8.2)
[2017-11-02 08:00] VITALS: BP 159/62
[2017-11-02 08:15] LABS: PLATELET SUFFICIENCY LOW (NORMAL); TOTAL CELLS COUNTED 100 #CELLS
[2017-11-02 12:00] VITALS: BP 160/66
[2017-11-02 16:00] VITALS: BP 154/60
[2017-11-02 20:00] VITALS: BP 131/64
[2017-11-03] VITALS: BP 123/55
[2017-11-03 07:20] LABS: HEMATOCRIT 36.7 % (42.0-52.0); HEMOGLOBIN 11.8 g/dl (14.0-18.0); MEAN CELL VOLUME 93.4 fl (80.0-94.0); MEAN CORPUSCULAR HGB CONC 32.2 g/dl (33.0-37.0); MEAN PLATELET VOLUME 12.2 fl (9.6-12.3); NUCLEATED RED BLOOD CELL 0.3 % (0.0-0.0); PLATELET COUNT AUTOMATED 78 10*3/uL (130-400); RED BLOOD COUNT 3.93 10*6/uL (4.50-5.90); RED CELL DISTRI WIDTH 14.9 % (0-14.5); WHITE BLOOD COUNT 10.4 10*3/uL (4.8-10.8)
[2017-11-03 07:29] LABS: ALBUMIN 2.8 gm/dl (3.1-4.5); ALKALINE PHOSPHATASE 46 U/L (45-117); BUN 27 mg/dl (7-24); CHLORIDE 109 mmol/L (98-107); CREATININE 1.34 mg/dL (0.70-1.30); POTASSIUM 4.4 mmol/L (3.5-5.1); SGOT/AST 14 IU/L (3-35); SGPT/ALT 33 U/L (12-78); SODIUM 140 mmol/L (136-145)
[2017-11-03 08:00] VITALS: BP 158/73
[2017-11-03 08:46] LABS: TOTAL CELLS COUNTED 100 #CELLS
[2017-11-03 08:47] LABS: PLATELET SUFFICIENCY LOW (NORMAL)
[2017-11-03 12:00] VITALS: BP 146/56
[2017-11-03 16:00] VITALS: BP 137/54
[2017-11-03 20:00] VITALS: BP 145/56
[2017-11-04] VITALS (10 sets, daily range): BP systolic 114–175; BP diastolic 50–84
[2017-11-04 08:21] LABS: HEMATOCRIT 38.6 % (42.0-52.0); HEMOGLOBIN 12.7 g/dl (14.0-18.0); MEAN CORPUSCULAR HGB CONC 32.9 g/dl (33.0-37.0); MEAN PLATELET VOLUME 12.2 fl (9.6-12.3); PLATELET COUNT AUTOMATED 81 10*3/uL (130-400); RED BLOOD COUNT 4.24 10*6/uL (4.50-5.90); RED CELL DISTRI WIDTH 15.2 % (0-14.5); WHITE BLOOD COUNT 10.7 10*3/uL (4.8-10.8)
[2017-11-04 08:41] LABS: BURR CELLS FEW; PLATELET SUFFICIENCY LOW (NORMAL); TOTAL CELLS COUNTED 100 #CELLS
[2017-11-04 08:54] LABS: ALBUMIN 3.1 gm/dl (3.1-4.5); CREATININE 1.39 mg/dL (0.70-1.30); POTASSIUM 4.3 mmol/L (3.5-5.1); TOTAL PROTEIN 6.6 gm/dL (6.4-8.2)
[2017-11-05] VITALS (7 sets, daily range): BP systolic 117–136; BP diastolic 56–71
[2017-11-05] MEDS ORDERED: PREDNISONE10 MG PO (07:23)
[2017-11-05] MEDS ORDERED: DOXYCYCLINE100 M3 PO (07:23)
[2017-11-05] MEDS ORDERED: LOVENOX120 MG/0.8 SC (07:24)
[2017-11-05] MEDS ORDERED: OXYGEN NAS (07:26)
[2017-11-05] MEDS ORDERED: PROVENTIL HFA6.7 GM INH (07:29)
[2017-11-05 13:09] LABS: ACID FAST SMEAR Negative (.); ACID FAST SPEC PROCESSING Concentration (.)
[2017-11-06 06:55] LABS: CREATININE 1.42 mg/dL (0.70-1.30)
[2017-11-06 08:00] VITALS: BP 134/56
== END 2017-11-06 12:25 | disposition home or self-care (01) | DRG 871 ==
LOC: ED 17:40 → 4E 18:47 → ICCU 18:47 → EDHOLD 18:47 → ICCU 18:57 → 4E 10-30 18:51
PROVIDERS: Emergency Medicine; Hospitalist; Internal Medicine Critical Care Medicine; Student in an Organized Health Care Education/Training Program
PROC: 5A09357 Assistance with Respiratory Ventilation, Less than 24 Consecutive Hours, Continuous Positive Airway Pressure (ICD-10-PCS; principal; 2017-10-28)
PROC: 5A09357 Assistance with Respiratory Ventilation, Less than 24 Consecutive Hours, Continuous Positive Airway Pressure (ICD-10-PCS; 2017-10-29)
PROC: 5A09357 Assistance with Respiratory Ventilation, Less than 24 Consecutive Hours, Continuous Positive Airway Pressure (ICD-10-PCS; 2017-10-30)
PROC: 0BC88ZZ Extirpation of Matter from Left Upper Lobe Bronchus, Via Natural or Artificial Opening Endoscopic (ICD-10-PCS; 2017-11-04)
PROC: 0BCB8ZZ Extirpation of Matter from Left Lower Lobe Bronchus, Via Natural or Artificial Opening Endoscopic (ICD-10-PCS; 2017-11-04)
PROC: 0BC58ZZ Extirpation of Matter from Right Middle Lobe Bronchus, Via Natural or Artificial Opening Endoscopic (ICD-10-PCS; 2017-11-04)
PROC: 0BC68ZZ Extirpation of Matter from Right Lower Lobe Bronchus, Via Natural or Artificial Opening Endoscopic (ICD-10-PCS; 2017-11-04)
PROC: 0BC48ZZ Extirpation of Matter from Right Upper Lobe Bronchus, Via Natural or Artificial Opening Endoscopic (ICD-10-PCS; 2017-11-04)
DX: A41.9 Sepsis, unspecified organism (principal); N17.0 Acute kidney failure with tubular necrosis; J96.01 Acute respiratory failure with hypoxia; J96.02 Acute respiratory failure with hypercapnia; J12.1 Respiratory syncytial virus pneumonia; D68.59 Other primary thrombophilia; D69.6 Thrombocytopenia, unspecified; E11.65 Type 2 diabetes mellitus with hyperglycemia; J44.0 Chronic obstructive pulmonary disease with (acute) lower respiratory infection; J44.1 Chronic obstructive pulmonary disease with (acute) exacerbation; I27.20 Pulmonary hypertension, unspecified; R65.20 Severe sepsis without septic shock; E55.9 Vitamin D deficiency, unspecified; J20.9 Acute bronchitis, unspecified; D53.9 Nutritional anemia, unspecified; E86.0 Dehydration; K21.9 Gastro-esophageal reflux disease without esophagitis; E78.00 Pure hypercholesterolemia, unspecified; I10 Essential (primary) hypertension; T38.0X5A Adverse effect of glucocorticoids and synthetic analogues, initial encounter; Y92.89 Other specified places as the place of occurrence of the external cause; Z86.711 Personal history of pulmonary embolism; Z85.038 Personal history of other malignant neoplasm of large intestine; Z92.21 Personal history of antineoplastic chemotherapy; Z92.3 Personal history of irradiation; Z86.718 Personal history of other venous thrombosis and embolism; Z79.51 Long term (current) use of inhaled steroids; Z79.899 Other long term (current) drug therapy; Z90.49 Acquired absence of other specified parts of digestive tract; Z87.891 Personal history of nicotine dependence; Z82.49 Family history of ischemic heart disease and other diseases of the circulatory system; Z82.3 Family history of stroke; Z80.8 Family history of malignant neoplasm of other organs or systems

== ENCOUNTER → 2018-02-25 | Outpatient (CLI) | payer OTHER ==
[~2018-02-25] MED LIST changes: +DOXYCYCLINE100 M3 PO; +LOVENOX120 MG/0.8 SC; +OXYGEN NAS; +PREDNISONE10 MG PO; +PROTONIX40 MG PO; +PROVENTIL HFA6.7 GM INH
[2018-02-25 14:16] LABS: BASO % 0.2 % (0.0-1.0); EOS # 0.1 10*3/uL (0.0-0.4); EOS % 2.5 % (1.0-4.0); HEMOGLOBIN 12.7 g/dl (14.0-18.0); LYMPH # 1.5 10*3/uL (1.3-4.4); MEAN CELL VOLUME 92.4 fl (80.0-94.0); MEAN CORPUSCULAR HGB 29.3 pg (27.0-31.0); MEAN CORPUSCULAR HGB CONC 31.8 g/dl (33.0-37.0); MEAN PLATELET VOLUME 11.4 fl (9.6-12.3); MONO # 0.8 10*3/uL (0.1-1.0); MONO % 14.7 % (3.0-9.0); NEUT # 3.1 10*3/uL (2.3-7.9); NEUT % 55.1 % (47.0-73.0); PLATELET COUNT AUTOMATED 79 10*3/uL (130-400); RED BLOOD COUNT 4.33 10*6/uL (4.50-5.90); RED CELL DISTRI WIDTH 15.9 % (0-14.5); WHITE BLOOD COUNT 5.7 10*3/uL (4.8-10.8)
[2018-02-25 14:44] LABS: ALBUMIN 3.7 gm/dl (3.1-4.5); CREATININE 1.77 mg/dL (0.70-1.30); PHOSPHOROUS 3.9 mg/dL (2.5-4.9); POTASSIUM 3.8 mmol/L (3.5-5.1)
[2018-02-25 14:45] LABS: BILIRUBIN NEGATIVE (NEGATIVE); BLOOD TRACE-INTACT (NEGATIVE); CLARITY SL CLOUDY (CLEAR); COLOR YELLOW (YELLOW); GLUCOSE NEGATIVE (NEGATIVE); KETONE NEGATIVE (NEGATIVE); LEUKO ESTERASE NEGATIVE (NEGATIVE); NITRITE NEGATIVE (NEGATIVE); SPECIFIC GRAVITY 1.015 (1.005-1.030); UROBILINOGEN 0.2 E.U./dl (0.2-1.0)
[2018-02-25 14:55] LABS: BACTERIA 1+; EPITHELIAL CELLS 0-3; MUCOUS TRACE; WBC 0-2 wbc/hpf (0-5)
[2018-02-25 15:08] LABS: FERRITIN 37.1 ng/mL (22.0-322.0); VITAMIN D, 25-HYDROXY 33.1 ng/mL (30-100)
[2018-02-25 15:09] LABS: PTH INTACT 118.5 pg/mL (14.0-72.0)
== END | disposition home or self-care (01) ==
LOC: LAB 13:52
PROVIDERS: Internal Medicine Nephrology
DX: N18.3 Chronic kidney disease, stage 3 (moderate) (principal); N25.81 Secondary hyperparathyroidism of renal origin; D64.9 Anemia, unspecified; Z79.899 Other long term (current) drug therapy

== ENCOUNTER → 2018-07-23 | Outpatient (CLI) | payer OTHER ==
[2018-07-23 14:12] LABS: BASO % 0.6 % (0.0-1.0); EOS # 0.1 10*3/uL (0.0-0.4); EOS % 1.7 % (1.0-4.0); HEMATOCRIT 41.5 % (42.0-52.0); HEMOGLOBIN 13.4 g/dl (14.0-18.0); LYMPH # 1.9 10*3/uL (1.3-4.4); LYMPH % 28.1 % (27.0-41.0); MEAN CELL VOLUME 94.3 fl (80.0-94.0); MEAN CORPUSCULAR HGB 30.5 pg (27.0-31.0); MEAN CORPUSCULAR HGB CONC 32.3 g/dl (33.0-37.0); MEAN PLATELET VOLUME 12.2 fl (9.6-12.3); MONO # 0.6 10*3/uL (0.1-1.0); MONO % 8.6 % (3.0-9.0); NEUT % 60.2 % (47.0-73.0); PLATELET COUNT AUTOMATED 98 10*3/uL (130-400); RED CELL DISTRI WIDTH 14.4 % (0-14.5); WHITE BLOOD COUNT 6.7 10*3/uL (4.8-10.8)
[2018-07-23 14:12] LABS: BILIRUBIN NEGATIVE (NEGATIVE); BLOOD NEGATIVE (NEGATIVE); CLARITY CLEAR (CLEAR); COLOR YELLOW (YELLOW); GLUCOSE NEGATIVE (NEGATIVE); KETONE NEGATIVE (NEGATIVE); LEUKO ESTERASE NEGATIVE (NEGATIVE); NITRITE NEGATIVE (NEGATIVE); PH 5.5 (5.0-9.0); UROBILINOGEN 0.2 E.U./dl (0.2-1.0)
[2018-07-23 14:21] LABS: URINE CREATININE RANDOM 20.5 mg/dL
[2018-07-23 14:22] LABS: BACTERIA TRACE; EPITHELIAL CELLS 0-2; RBC 0-2 rbc/hpf (0-2); WBC 0-2 wbc/hpf (0-5)
[2018-07-23 14:50] LABS: VITAMIN D, 25-HYDROXY 27.8 ng/mL (30-100)
[2018-07-23 14:51] LABS: FERRITIN 74.2 ng/mL (22.0-322.0); PTH INTACT 80.4 pg/mL (18.5-88.0)
[2018-07-23 14:54] LABS: ALBUMIN 4.3 gm/dl (3.1-4.5); CREATININE 1.79 mg/dL (0.70-1.30); PHOSPHOROUS 3.8 mg/dL (2.5-4.9); POTASSIUM 3.9 mmol/L (3.5-5.1)
== END | disposition home or self-care (01) ==
LOC: LAB 13:42
PROVIDERS: Internal Medicine Nephrology
DX: N25.81 Secondary hyperparathyroidism of renal origin (principal); D64.9 Anemia, unspecified; N18.3 Chronic kidney disease, stage 3 (moderate); Z79.899 Other long term (current) drug therapy

== ENCOUNTER 2018-12-15 20:44 | Inpatient (IN) | payer OTHER ==
[~2018-12-15] VITALS: Ht 172.7 cm; Wt 71.7 kg
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
--- NOTE | ~2018-12-15 | EKG ---
[place], [place] ELECTROCARDIOGRAM REPORT NAME: HARSH JOHNS SR UNIT #: [id number] ROOM: DOCTOR: EPIPHANY DRAFT REPORT BIRTHDATE: [birth year] [facility] Test Date: 2018-12-15 Test Time: 22:51:13 Pat Name: HARSH JOHNS Department: Room: Gender: Internet Security Specialist: : 1940 Requested By: KAMLA MUSTAFA Order Number: [id number] Reading MD: Measurements Intervals [place] Rate: 80 P: 65 WA: 213 QRS: -10 QRSD: 101 T: 30 QT: 384 QTc: 443 Interpretive Statements Sinus rhythm Borderline prolonged WA interval Probable left atrial enlargement No previous ECG available for comparison CM:EKGRPT:ELECTROCARDIOGRAM REPORT 50 52 KAMLA YEN DRAFT REPORT KAMLA MUSTAFA DO
[2018-12-15 20:49] VITALS: BP 125/54
[2018-12-15] MEDS ORDERED: LIPITOR10 MG PEG (20:55)
[2018-12-15] MEDS ORDERED: LANTUS SOL100 UNIT/1 SQ (20:55)
[2018-12-15] MEDS ORDERED: MELATONIN3 MG PEG (20:56)
[2018-12-15] MEDS ORDERED: ALBUTEROL2.5 MG/0.5 INH (20:57)
[2018-12-15] MEDS ORDERED: DEXTROSE IV (20:58)
[2018-12-15] MEDS ORDERED: DRY MOUTH MM (21:00)
[2018-12-15] MEDS ORDERED: HUMULIN R500 UNIT/1 SQ (21:01)
[2018-12-15] MEDS ORDERED: IMODIUM A-1 MG/7.51 PEG (21:02)
[2018-12-15] MEDS ORDERED: PULMICORT RESP0.5 MG INH (21:02)
[2018-12-15] MEDS ORDERED: VITAMIN D31000 UNIT PEG (21:03)
[2018-12-15] MEDS ORDERED: VITAMIN B-1000 MCG/1 PEG (21:05)
[2018-12-15] MEDS ORDERED: LIDODERM1 EACH T (21:06)
[2018-12-15] MEDS ORDERED: DICLO GEL1 EACH T (21:06)
[2018-12-15] MEDS ORDERED: LOPRESSOR25 MG PO (21:08)
[2018-12-15] MEDS ORDERED: NYST SUSP PO (21:09)
[2018-12-15] MEDS ORDERED: PROTONIX40 M2 GT (21:09)
[2018-12-15] MEDS ORDERED: DEMADEX10 M1 PEG (21:10)
[2018-12-15] MEDS ORDERED: SPIRIVA -- 3018 MCG INH (21:10)
[2018-12-15] MEDS ORDERED: BROVANA15 MCG/2 M INH (21:11)
[2018-12-15] MEDS ORDERED: Lovenox40 MG/0.4 SC (21:11)
[2018-12-15] MEDS ORDERED: ONE-DAILY MULT1 EAC1 PEG (21:12)
[2018-12-15] MEDS ORDERED: PREDNISONE10 M1 PO (21:12)
[2018-12-15] MEDS ORDERED: LOVASTATIN20 MG PO (21:13)
[2018-12-15] MEDS ORDERED: FLOMAX0.4 MG PO (21:13)
[2018-12-15] MEDS ORDERED: ADV 500/50 INH (21:14)
[2018-12-15] MEDS ORDERED: XARE20MG PO (21:14)
--- NOTE | 2018-12-15 21:31 | NUR ---
PATIENT DAUGHTER AT BEDSIDE AT THIS TIME. PT WAS GIVEN 1MG ATIVAN IM FOR AGITATION. MEDICATION EFFECTIVE. PATIENT CALM AND COOPERATIVE AT THIS TIME.
--- NOTE | 2018-12-15 22:38 | NUR ---
LAB AND FAMILY AT BEDSIDE AT THIS TIME. PATIENT RESTING WITH EYES CLOSED. NO S/S OF DISTRESS NOTED. SIDERAILS UP X2, CALL LIGHT WITHIN REACH, BED IN LOW POSITION WITH FEET RAISED.
[2018-12-15 22:45] LABS: BASO % 0.3 % (0.0-1.0); EOS # 0.1 10*3/uL (0.0-0.4); HEMATOCRIT 37.1 % (42.0-52.0); HEMOGLOBIN 12.1 g/dl (14.0-18.0); LYMPH # 1.3 10*3/uL (1.3-4.4); LYMPH % 21.5 % (27.0-41.0); MEAN CELL VOLUME 92.1 fl (80.0-94.0); MEAN CORPUSCULAR HGB CONC 32.6 g/dl (33.0-37.0); MEAN PLATELET VOLUME 13.4 fl (9.6-12.3); MONO # 0.7 10*3/uL (0.1-1.0); MONO % 10.6 % (3.0-9.0); NEUT % 65.6 % (47.0-73.0); PLATELET COUNT AUTOMATED 73 10*3/uL (130-400); RED BLOOD COUNT 4.03 10*6/uL (4.50-5.90); RED CELL DISTRI WIDTH 15.7 % (0-14.5); WHITE BLOOD COUNT 6.2 10*3/uL (4.8-10.8)
[2018-12-15 23:01] LABS: ALBUMIN 3.1 gm/dl (3.1-4.5); ALKALINE PHOSPHATASE 75 U/L (45-117); BUN 23 mg/dl (7-24); CHLORIDE 104 mmol/L (98-107); CREATININE 1.05 mg/dL (0.70-1.30); SGOT/AST 20 IU/L (3-35); SGPT/ALT 25 U/L (12-78); SODIUM 141 mmol/L (136-145); TOTAL PROTEIN 6.7 gm/dL (6.4-8.2)
[2018-12-15 23:06] LABS: ACETAMINOPHEN (TYLENOL) < 5.0 ug/ml (10-30); ETHYL ALCOHOL < 3.0 mg/dl (<3)
[2018-12-15 23:43] LABS: BILIRUBIN NEGATIVE (NEGATIVE); BLOOD NEGATIVE (NEGATIVE); CLARITY CLEAR (CLEAR); COLOR YELLOW (YELLOW); GLUCOSE NEGATIVE (NEGATIVE); KETONE NEGATIVE (NEGATIVE); LEUKO ESTERASE NEGATIVE (NEGATIVE); NITRITE NEGATIVE (NEGATIVE); PH 7.5 (5.0-9.0)
[2018-12-15 23:51] LABS: URINE AMPHETAMINES < 1000 (1000ng/ml); URINE BARBITURATES < 200 (200ng/ml); URINE BENZODIAZEPINES < 200 (200ng/ml); URINE CANNABINOIDS (THC) < 50 (50ng/ml); URINE COCAINE < 300 (300ng/ml); URINE METHADONE < 300 (300ng/ml); URINE OPIATES < 300 (300ng/ml)
[2018-12-15 23:52] LABS: URINE PHENCYCLIDINE < 25 (25ng/ml)
[2018-12-16 01:32] VITALS: BP 110/61
--- NOTE | 2018-12-16 01:40 | NUR ---
JUDITH FROM [facility] CALLED TO ASK PLANS ON HARSH JOHNS, INFORMED OF PLAN OF CARE AND AWAITING CALL FROM DR GRANGER FROM [facility]
[2018-12-16 03:21] VITALS: BP 106/53
--- NOTE | 2018-12-16 06:11 | NUR ---
BILAT LOWER EXTREMITY EDEMA 3+
--- NOTE | 2018-12-16 06:12 | NUR ---
AWAITING CALL FROM DR GRANGER REGARDING [facility]
--- NOTE | 2018-12-16 06:38 | NUR ---
NOTIFIED [facility] PLAN OF CARE, SPOKE WITH ARIEL
[2018-12-16 07:20] VITALS: BP 105/61
--- NOTE | 2018-12-16 07:36 | NUR ---
DR KLEIN PHONED UNIT & ASKED IF PT WAS BEING ADMITTED TO THE [facility]. INFORMED HIM THAT YES, PT IS PRESENTLY IN ER WAITING TO COME UP TO THE UNIT FOR ADMISSION AFTER REPORT. DR KLEIN, ASKED IF MEDICAL CONSULT COULD BE PUT IN FOR HIM & HE WOULD BE IN TO SEE PT THIS AM.
--- NOTE | 2018-12-16 07:52 | NUR ---
U NURSE HERE TO TAKE PATIENT TO [facility]. PATIENT RESTING AND NO CONCENRS AT THIS TIME.
--- NOTE | 2018-12-16 07:53 | NUR ---
REPORT GIVEN TO [facility] NURSE. FULL HEAD TO TOE ASSESSMENT GIVEN, AND ER TREATMENT GIVEN. NO CONCERNS AT THIS TIME.
--- NOTE | 2018-12-16 07:58 | NUR ---
NAT BOWERS,HARSH Nugent a 78 year old M admitted via stretcher from the EMERGENCY ROOM as a emergency 72 hr. hold admission. Arrived on unit at 0758. ALLERGIES: NKA. Vital signs are: 97.4-68-18 96/58, 91% RA. The client signed the following forms with stated understanding: Authorization For The Release of Medical Information, Clothing List, Consent to Voluntary Admission and Hospitalization, Consent and Release Forms/Receipt of Rights, Acknowledgement of Advance Directive Information, Behavioral Health Consent Form, and Informed Consent of Medications. Admitted under the services of Dr. ELKIN ALMANZA,[facility]. A search was conducted and hazardous articles were removed. Client was oriented to the unit. ZANDRA GROSS
--- NOTE | 2018-12-16 08:15 | NUR ---
Treatment Plan meeting with Dr. Mayen, RN, AT, SW and Scrap Materials Buyer. Plan for discharge next week. Pt. current resident at [facility]. Will reach out to facility to discuss discharge Planning.
[2018-12-16 08:36] VITALS: BP 96/58
--- NOTE | 2018-12-16 09:08 | NUR ---
PHYSICAL THERAPY Nursing screen received, PT orders also received. Thank you. Qi Taylor,PT
[2018-12-16 10:24] LABS: CHLORIDE 104 mmol/L (98-107); SODIUM 141 mmol/L (136-145)
[2018-12-16 10:33] LABS: ALBUMIN 2.9 gm/dl (3.1-4.5); ALKALINE PHOSPHATASE 69 U/L (45-117); BUN 21 mg/dl (7-24); CREATININE 1.09 mg/dL (0.70-1.30); SGOT/AST 20 IU/L (3-35); SGPT/ALT 23 U/L (12-78); TOTAL PROTEIN 6.5 gm/dL (6.4-8.2)
--- NOTE | 2018-12-16 10:43 | NUR ---
Nutritional Support Services Note; Dx of intermittent explosive disorder. PMH COPD,DM, HLD,DVT,CA, acute kidney injury. Pt has a peg tube. Ht.5'8 Wt.158# IBW [phone]. He is at appropriate wt for ht at this time. He requires 1700cal daily to maintain current wt. Glucerna 1.0 bolus tube feedings reguiring 7 cans per day to provide pt with 1659cal daily. He requires 2100cc of fluid daily- TF will provide 1500cc of fluid daily, pt requires an additional 600cc of fluid. Will follow as needed. Melissa Martinez Rdn Ld
--- NOTE | 2018-12-16 11:00 | NUR ---
Patient not available for Occupational Therapy evaluation as he was unable to arouse, drowsy. OTR will attempt at a later date. Amina Avilez OTR/[place]
--- NOTE | 2018-12-16 11:10 | NUR ---
SPEECH PATHOLOGY Nursing screen completed. Patient not appropriate for speech pathology services. Patient is PEG tube fed and with premorbid confusion. AIDA GRAY MS CCC-ABALONE DIVER
[2018-12-16 11:21] LABS: VITAMIN D, 25-HYDROXY 34.7 ng/mL (30-100)
--- NOTE | 2018-12-16 11:32 | NUR ---
Clinical Updates faxed to [facility] Attn: Domenica.
[2018-12-16 11:37] VITALS: BP 102/58
--- NOTE | 2018-12-16 11:39 | NUR ---
PHYSICAL THERAPY Nursing request no PT attempt this date. PAtient drowsey and unable to participate. Thank you for this referral;. Qi Botello,PT
--- NOTE | 2018-12-16 11:44 | NUR ---
AM GROUP/EXERCISE AND BALL TOSS PT DID NOT ATTEND MORNING GROUP THERAPY. PT HAS JUST BEEN ADMITTED TO THE UNIT. WILL ATTEMPT TO ASSESS PT AND SET GOALS LATER THIS AFTERNOON.
--- NOTE | 2018-12-16 11:56 | NUR ---
Attempted to meet with pt who was asleep. Pt not very responsive verbally. Collaborated with tx team. Collaborated with production planner scheduler and CM who is in touch with Dr. Nair. Called who confirmed she does not have POA ppwk and would rather meet with this keno writer/runner for PSA when she arrives to visit pt.
--- NOTE | 2018-12-16 12:20 | NUR ---
DR. KLEIN NOTIFIED REGARDING REVIEW OF MEDICATIONS, MANUAL BP OF 102/58, 68, 96% RA. PATIENT HAS MOIST COUGH.
--- NOTE | 2018-12-16 12:56 | NUR ---
Nursing screen and Occupational Therapy referral received. Thank you. Amina Avilez OTR/l
--- NOTE | 2018-12-16 14:06 | NUR ---
Met with family who indicated pt did respond he loved his daughter back but mostly remains non-verbal and sedated. Family expressed wish for pt to not be transferred to [place] again but rather to go to [facility] if needed. OFfered family support as pt transferred to [facility] and escorted family to the snack bar and the plan was for the family to meet pt up on [facility]. PSA completed.
--- NOTE | 2018-12-16 14:12 | NUR ---
SPOKE WITH Yann GERMAN ADVISED THAT THIS NURE IS ATTEMPTING TO COMPLETE PT DISCHARGE, ASDKED WHAT HE WOULD LIKE DONE WITH MEDICAL MEDS, PER DO NOTHING WIHT MEDS, CALL THE ICU AND ADVISED THEM OF THE MEDS AND HE WILL DO IT LATER. ADVISED DR THAT I NEED TO COMPLETE PT DISCHARGE SO HE CAN BE D/C FROM THE SYSTEM. NURSE CONTINUED MEDS SO DISCHARGE CAN ME COMPLETED AND PT REMOVED FROM THE SYSTEM. CALLED ICU AND ADVISED OF SITUATION. CONVERSATION WITNESSED BY LINE TECHNICIAN/CAR BODY MECHANIC YENNIFER TEJADA.
--- NOTE | 2018-12-16 14:14 | NUR ---
1414: UPDATED ON PT BY PERFOR[employer]UT[employer] SPECIALIST/DIRECTOR OF SUSTAINABILITY YENNIFER TEJADA. DR JOHNL AWARE OF PT, ASKED FOR RN TO CHECK PT PUPILS. RIGHT PUPIL REACTIVE, LEFT PUPIL SLUGGISH, DR. JOHN UPDATED BY YENNIFER TEJADA. 1414: DR. KLEIN CALLED RN ZANDRA DIEZ , VERBAL ORDERS RECEIVED TO CALL BRAIN ATTACK, DX RIGHT SIDED HEMIPARASIS, STAT HEAD CT AND SEND DIRECTLY TO ICU. 1416: BRAIN ATTACKED CALLED AT TEAM ON UNIT, UPDATE PROVIDED. VS 97.8-76-16-108/42, MANUAL BP 80/50, 94%RA, 196 BS. 1422: PT OFF THE UNIT TO HEAD CT 1426: DR. GRANGER MADE AWARE OF PT DISCHARGE VERBAL ORDERS RECEIVED TO CONTINUE CURRENT PSYCH MEDS
[2018-12-16] MEDS ORDERED: EXELON1 EACH TD (15:42)
[2018-12-16] MEDS ORDERED: DEPAKOTE SPRIN125 MG PEG (15:42)
[2018-12-16] MEDS ORDERED: HUMULIN R500 UNIT/1 SC (17:22)
[2018-12-16] MEDS ORDERED: OCEAN104 ML NAS (17:47)
[2018-12-16] MEDS ORDERED: Lovenox40 MG/0.4 SC (17:50)
== END 2018-12-16 14:45 | disposition short-term general hospital (02) | DRG 883 ==
LOC: ED 20:44 → 3N 12-16 06:20
PROVIDERS: Emergency Medicine; ADMIT Psychiatry & Neurology Psychiatry
DX: F63.81 Intermittent explosive disorder (principal); E11.9 Type 2 diabetes mellitus without complications; E78.2 Mixed hyperlipidemia; I27.20 Pulmonary hypertension, unspecified; J44.9 Chronic obstructive pulmonary disease, unspecified; G30.1 Alzheimer's disease with late onset; F02.80 Dementia in other diseases classified elsewhere, unspecified severity, without behavioral disturbance, psychotic disturbance, mood disturbance, and anxiety; F41.9 Anxiety disorder, unspecified; S09.90XA Unspecified injury of head, initial encounter; W18.30XA Fall on same level, unspecified, initial encounter; Y93.89 Activity, other specified; Y92.89 Other specified places as the place of occurrence of the external cause; Y99.8 Other external cause status; Z86.718 Personal history of other venous thrombosis and embolism; Z87.891 Personal history of nicotine dependence; Z86.711 Personal history of pulmonary embolism; Z85.9 Personal history of malignant neoplasm, unspecified; Z87.01 Personal history of pneumonia (recurrent); Z90.49 Acquired absence of other specified parts of digestive tract; Z80.0 Family history of malignant neoplasm of digestive organs; Z82.49 Family history of ischemic heart disease and other diseases of the circulatory system; Z82.3 Family history of stroke

== ENCOUNTER 2018-12-16 14:31 | Inpatient (IN) | payer OTHER ==
[~2018-12-16] VITALS: Ht 175.3 cm; Wt 70.1 kg
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
--- NOTE | ~2018-12-16 | PR ---
[place], [place] PROGRESS NOTE [id number] UNIT #: [id number] ROOM: 511 DOCTOR: YUSEF KLEIN MD BIRTHDATE: [birth year] DOS: SUBJECTIVE: The patient is confused, agitated, restless. OBJECTIVE: GENERAL APPEARANCE: The patient is alert and oriented x 3, in no visible distress. The patient has generalized weakness, mental confusion and the patient is quite restless. VITAL SIGNS: Blood pressure 110/66, heart rate 76 beats per minute, breathing normally, afebrile. HEENT AND NECK: Exam within normal limits. CARDIOVASCULAR SYSTEM: Heart rate is regular in rate and rhythm. S1 and S2 normally audible. LUNGS: Clear to auscultation. ABDOMEN: Soft, nontender. No obvious organomegaly. Bowel sounds are present. EXTREMITIES: Without significant cyanosis or edema. IMPRESSION: 1. Late onset of Alzheimer's type dementia with mental confusion, agitation, restlessness and recurrent falls. Dr. Mayen, the psychiatrist is on consult. 2. The patient with pneumonia bilaterally in the lower lungs, being treated with antibiotics. Dr. Lofton, the ambulance operations supervisor, is also following him. 3. Intermittent explosive disorder, being followed by Psychiatry, Dr. Mayen, apparently related to his Alzheimer's type dementia who is being treated with Depakote and Exelon. 4. Generalized anxiety and agitation, being treated with Ativan earlier. 5. Type 2 diabetes mellitus. The patient is being fed with Glucerna. 6. Urine retention and benign prostatic hypertrophy, treated with Flomax. 7. Gastroesophageal reflux disease and esophagitis, treated with Protonix, asymptomatic. YUSEF KLEIN MD CM:[id number] YUSEF KLEIN MD 12/19/18 1027 interface
--- NOTE | ~2018-12-16 | DS ---
[place], [place] DISCHARGE SUMMARY NAME: HARSH JOHNS SR UNIT #: [id number] ROOM: 511 DOCTOR: YUSEF KLEIN MD BIRTHDATE: [birth year] DOS: 12/19/2018 DISCHARGE DIAGNOSES: 1. Late onset Alzheimer's type dementia. 2. Behavioral issues with agitation and mental confusion. 3. Bilateral lower lung pneumonia versus atelectasis, followed by Dr. Lofton. 4. Intermittent explosive disorder followed by Psychiatry. 5. Generalized anxiety disorder and agitation. 6. Type 2 diabetes mellitus. 7. Urinary retention and prostatic hypertrophy. 8. Gastroesophageal reflux disease and esophagitis. 9. Mixed hyperlipidemia. CT of the head showing diffuse ischemic changes which are extensive and chronic. The patient with chronic ischemic changes on CT scan of the brain advanced late onset Alzheimer's type dementia and mental confusion with agitation and multiple falls on his head, which initially resulted in a subdural hematoma, but repeat CAT scan during this admission did not show any acute abnormality. The patient required a sitter with him at all times at the hospital and now is leaving for nursing facility today in a stable condition otherwise. The patient n.p.o., has PEG tube placement for feeding. He has dysphagia and is unable to swallow. The patient's bibasilar consolidation pneumonia on the lower lungs treated with Zosyn. Dr. Lofton, the squeegee finisher did not recommend any continued antibiotic after discharge. Intermittent explosive disorder, treated with Depakote and Exelon by Dr. Mayen, the psychiatrist. Type 2 diabetes mellitus. The patient on diabetic PEG tube feedings with Glucerna. Urinary retention, benign prostatic hypertrophy, asymptomatic with Flomax. Gastroesophageal reflux disease and esophagitis. The patient treated with Protonix, asymptomatic. DISCHARGE MANAGEMENT: Rivastigmine 4.6 mg daily, lidocaine as needed 5% cream to skin. Depakote 250 mg 3 times a day, Protonix 40 mg daily, Flomax 0.4 mg daily, DuoNeb q.i.d. p.r.n. for shortness of breath. [place], [place] DISCHARGE SUMMARY NAME: HARSH JOHNS SR UNIT #: [id number] ROOM: 511 DOCTOR: YUSEF KLEIN MD BIRTHDATE: [birth year] YUSEF KLEIN MD CM:OVI [id number] YUSEF KLEIN MD 12/19/18 1307 interface
[~2018-12-16 14:31] MED LIST changes: +ADV 500/50 INH; +ALBUTEROL2.5 MG/0.5 INH; +BROVANA15 MCG/2 M INH; +DEMADEX10 M1 PEG; +DEXTROSE IV; +DICLO GEL1 EACH T; +DRY MOUTH MM; +FLOMAX0.4 MG PO; +HUMULIN R500 UNIT/1 SQ; +IMODIUM A-1 MG/7.51 PEG; +LANTUS SOL100 UNIT/1 SQ; +LIDODERM1 EACH T; +LIPITOR10 MG PEG; +LOPRESSOR25 MG PO; +Lovenox40 MG/0.4 SC; +MELATONIN3 MG PEG; +NYST SUSP PO; +ONE-DAILY MULT1 EAC1 PEG; +PREDNISONE10 M1 PO; +PROTONIX40 M2 GT; +PULMICORT RESP0.5 MG INH; +SPIRIVA -- 3018 MCG INH; +VITAMIN B-1000 MCG/1 PEG; +VITAMIN D31000 UNIT PEG; +XARE20MG PO
[2018-12-16 14:45] VITALS: BP 93/57
[2018-12-16] MEDS ORDERED: EXELON1 EACH TD (15:42)
[2018-12-16] MEDS ORDERED: DEPAKOTE SPRIN125 MG PEG (15:42)
[2018-12-16 16:00] VITALS: BP 116/65
[2018-12-16] MEDS ORDERED: HUMULIN R500 UNIT/1 SC (17:22)
[2018-12-16] MEDS ORDERED: OCEAN104 ML NAS (17:47)
[2018-12-16] MEDS ORDERED: Lovenox40 MG/0.4 SC (17:50)
[2018-12-16 18:47] LABS: BASO % 0.4 % (0.0-1.0); EOS # 0.1 10*3/uL (0.0-0.4); EOS % 2.3 % (1.0-4.0); HEMATOCRIT 39.1 % (42.0-52.0); HEMOGLOBIN 12.5 g/dl (14.0-18.0); LYMPH # 1.4 10*3/uL (1.3-4.4); LYMPH % 28.8 % (27.0-41.0); MEAN CELL VOLUME 93.1 fl (80.0-94.0); MEAN CORPUSCULAR HGB 29.8 pg (27.0-31.0); MEAN PLATELET VOLUME 12.8 fl (9.6-12.3); MONO # 0.5 10*3/uL (0.1-1.0); MONO % 10.5 % (3.0-9.0); NEUT # 2.8 10*3/uL (2.3-7.9); NEUT % 56.6 % (47.0-73.0); PLATELET COUNT AUTOMATED 80 10*3/uL (130-400); RED CELL DISTRI WIDTH 15.8 % (0-14.5); WHITE BLOOD COUNT 4.9 10*3/uL (4.8-10.8)
[2018-12-16 19:08] LABS: BUN 21 mg/dl (7-24); CHLORIDE 103 mmol/L (98-107); CREATININE 1.04 mg/dL (0.70-1.30); POTASSIUM 4.4 mmol/L (3.5-5.1); SODIUM 140 mmol/L (136-145)
[2018-12-16 20:00] VITALS: BP 92/46
[2018-12-17] VITALS: BP 102/63
[2018-12-17 04:00] VITALS: BP 111/54
[2018-12-17 05:09] LABS: BUN 19 mg/dl (7-24); CHLORIDE 105 mmol/L (98-107); CREATININE 1.02 mg/dL (0.70-1.30); POTASSIUM 3.9 mmol/L (3.5-5.1); SODIUM 139 mmol/L (136-145)
[2018-12-17 06:01] LABS: BASO % 0.4 % (0.0-1.0); EOS # 0.1 10*3/uL (0.0-0.4); EOS % 2.3 % (1.0-4.0); HEMATOCRIT 37.7 % (42.0-52.0); HEMOGLOBIN 11.8 g/dl (14.0-18.0); LYMPH # 1.3 10*3/uL (1.3-4.4); LYMPH % 27.1 % (27.0-41.0); MEAN CELL VOLUME 93.5 fl (80.0-94.0); MEAN CORPUSCULAR HGB 29.3 pg (27.0-31.0); MEAN CORPUSCULAR HGB CONC 31.3 g/dl (33.0-37.0); MEAN PLATELET VOLUME 13.4 fl (9.6-12.3); MONO # 0.6 10*3/uL (0.1-1.0); MONO % 12.1 % (3.0-9.0); NEUT # 2.7 10*3/uL (2.3-7.9); NEUT % 57.3 % (47.0-73.0); PLATELET COUNT AUTOMATED 67 10*3/uL (130-400); RED BLOOD COUNT 4.03 10*6/uL (4.50-5.90); RED CELL DISTRI WIDTH 15.6 % (0-14.5); WHITE BLOOD COUNT 4.7 10*3/uL (4.8-10.8)
[2018-12-17 08:00] VITALS: BP 96/42
[2018-12-17 12:00] VITALS: BP 131/51
[2018-12-17 16:00] VITALS: BP 118/62
[2018-12-17 20:00] VITALS: BP 107/49
[2018-12-18] VITALS: BP 97/30
[2018-12-18 05:35] LABS: BUN 15 mg/dl (7-24); CHLORIDE 107 mmol/L (98-107); CREATININE 0.97 mg/dL (0.70-1.30); POTASSIUM 3.9 mmol/L (3.5-5.1); SODIUM 141 mmol/L (136-145)
[2018-12-18 05:56] LABS: BASO % 0.5 % (0.0-1.0); EOS # 0.1 10*3/uL (0.0-0.4); EOS % 2.3 % (1.0-4.0); HEMATOCRIT 34.5 % (42.0-52.0); HEMOGLOBIN 11.2 g/dl (14.0-18.0); LYMPH # 1.3 10*3/uL (1.3-4.4); MEAN CELL VOLUME 92.5 fl (80.0-94.0); MEAN CORPUSCULAR HGB CONC 32.5 g/dl (33.0-37.0); MEAN PLATELET VOLUME 12.9 fl (9.6-12.3); MONO # 0.4 10*3/uL (0.1-1.0); MONO % 11.3 % (3.0-9.0); NEUT # 2.1 10*3/uL (2.3-7.9); NEUT % 52.9 % (47.0-73.0); PLATELET COUNT AUTOMATED 83 10*3/uL (130-400); RED BLOOD COUNT 3.73 10*6/uL (4.50-5.90); RED CELL DISTRI WIDTH 15.5 % (0-14.5); WHITE BLOOD COUNT 3.9 10*3/uL (4.8-10.8)
[2018-12-18 08:00] VITALS: BP 114/56
[2018-12-18 12:00] VITALS: BP 116/82
[2018-12-18 15:58] VITALS: BP 110/66
[2018-12-18 20:00] VITALS: BP 129/50
[2018-12-19] VITALS: BP 129/60
[2018-12-19 05:11] LABS: BUN 12 mg/dl (7-24); CHLORIDE 109 mmol/L (98-107); CREATININE 0.84 mg/dL (0.70-1.30); POTASSIUM 3.7 mmol/L (3.5-5.1); SODIUM 142 mmol/L (136-145)
[2018-12-19 06:02] LABS: BASO % 0.3 % (0.0-1.0); EOS # 0.1 10*3/uL (0.0-0.4); EOS % 2.2 % (1.0-4.0); LYMPH # 1.4 10*3/uL (1.3-4.4); LYMPH % 36.4 % (27.0-41.0); MEAN CELL VOLUME 91.9 fl (80.0-94.0); MEAN CORPUSCULAR HGB 29.7 pg (27.0-31.0); MEAN CORPUSCULAR HGB CONC 32.4 g/dl (33.0-37.0); MEAN PLATELET VOLUME 12.2 fl (9.6-12.3); MONO # 0.4 10*3/uL (0.1-1.0); MONO % 11.3 % (3.0-9.0); NEUT # 1.8 10*3/uL (2.3-7.9); NEUT % 49.3 % (47.0-73.0); PLATELET COUNT AUTOMATED 81 10*3/uL (130-400); RED CELL DISTRI WIDTH 15.8 % (0-14.5); WHITE BLOOD COUNT 3.7 10*3/uL (4.8-10.8)
[2018-12-19 08:00] VITALS: BP 105/46
[2018-12-21 00:05] LABS: ADENOVIRUS Negative (Negative); INFLUENZA A Negative (Negative); INFLUENZA B Negative (Negative); METAPNEUMOVIRUS Negative (Negative); PARAINFLUENZA 1 Negative (Negative); PARAINFLUENZA 2 Negative (Negative); PARAINFLUENZA 3 Negative (Negative); RHINOVIRUS Negative (Negative); RSV A Negative (Negative); RSV B Negative (Negative)
== END 2018-12-19 13:35 | disposition other institution (70) | DRG 194 ==
LOC: ICCU 14:31 → 5E 14:31 → ICCU 12-17 11:22 → 5E 12-19 09:40
PROVIDERS: Internal Medicine Critical Care Medicine; ADMIT Internal Medicine
DX: J18.1 Lobar pneumonia, unspecified organism (principal); J98.11 Atelectasis; D68.59 Other primary thrombophilia; J44.0 Chronic obstructive pulmonary disease with (acute) lower respiratory infection; G30.1 Alzheimer's disease with late onset; F02.80 Dementia in other diseases classified elsewhere, unspecified severity, without behavioral disturbance, psychotic disturbance, mood disturbance, and anxiety; F63.81 Intermittent explosive disorder; F41.1 Generalized anxiety disorder; R13.12 Dysphagia, oropharyngeal phase; D72.819 Decreased white blood cell count, unspecified; D69.6 Thrombocytopenia, unspecified; E11.9 Type 2 diabetes mellitus without complications; R41.9 Unspecified symptoms and signs involving cognitive functions and awareness; N40.1 Benign prostatic hyperplasia with lower urinary tract symptoms; R29.6 Repeated falls; E78.00 Pure hypercholesterolemia, unspecified; R33.8 Other retention of urine; K21.0 Gastro-esophageal reflux disease with esophagitis; E78.2 Mixed hyperlipidemia; Z93.1 Gastrostomy status; Z86.718 Personal history of other venous thrombosis and embolism; Z86.711 Personal history of pulmonary embolism; Z85.038 Personal history of other malignant neoplasm of large intestine; Z92.21 Personal history of antineoplastic chemotherapy; Z87.891 Personal history of nicotine dependence; Z82.49 Family history of ischemic heart disease and other diseases of the circulatory system